=== PATIENT | female | born 1945 | race African-American/Black ===

== ENCOUNTER 2017-08-23 22:07 | Observation (INO) | payer OTHER, BC ==
[~2017-08-23] VITALS: Ht 154.9 cm; Wt 83.0 kg
[2017-08-23 22:59] LABS: MCH 28.5 PG (29.0-34.0); MCHC 32.3 G/DL (30.0-36.0); MCV 88.2 FL (83-99); PLATELET COUNT 206 K/uL (156-360); RBC DIS.WIDTH-CV 13.4 % (11.8-14.6); RBC DIS.WIDTH-SD 43.5 % (39-53); RED BLOOD COUNT 4.42 M/uL (3.80-5.20)
[2017-08-23 23:07] LABS: INTER. NORMALIZED RATIO 1.1; PROTHROMBIN TIME 12.4 SEC (10.2-12.9)
[2017-08-23 23:10] LABS: PTT 27.4 SEC (25-37)
[2017-08-23 23:13] LABS: CHLORIDE 108 mEq/L (99-109); SODIUM 140 mEq/L (136-147)
[2017-08-23 23:14] LABS: GLUCOSE 97 mg/dL (70-99)
[2017-08-23 23:16] LABS: ANION GAP 8 MEQ/L (2-14)
[2017-08-23 23:19] LABS: GFR ESTIMATE (CALCULATED) 58 mL/min/; UREA NITROGEN (BUN) 14 mg/dL (9-23)
[2017-08-23 23:22] LABS: TROP-I INTERPRETATION NEGATIVE; TROPONIN-I < 0.01 ng/mL (0.0-0.30)
[2017-08-24] MEDS ORDERED: RAYOS2 MG PO (01:48)
[2017-08-24] MEDS ORDERED: CRESTOR40 MG PO (01:48)
[2017-08-24] MEDS ORDERED: TRIDERM28.4 GM TP (01:50)
[2017-08-24] MEDS ORDERED: SYMBICORT60 INHALAT IH (01:50)
[2017-08-24] MEDS ORDERED: CYANOCOBALAM1000 MCG PO ×2 (01:51→01:57)
[2017-08-24] MEDS ORDERED: VITAMIN D31000 UNIT PO (01:52)
[2017-08-24] MEDS ORDERED: MULTAQ400 MG PO (01:52)
[2017-08-24] MEDS ORDERED: ELIQUIS5 MG PO (01:53)
[2017-08-24] MEDS ORDERED: NORVASC5 MG PO (01:54)
[2017-08-24] MEDS ORDERED: LO-DOSE ASPIRIN81 M2 PO (01:54)
[2017-08-24] MEDS ORDERED: CALCIUM CITRAT1 EA16 PO (01:56)
[2017-08-24] MEDS ORDERED: PROZAC20 MG PO (01:57)
[2017-08-24] MEDS ORDERED: FOLIC ACID1 MG PO (01:58)
[2017-08-24] MEDS ORDERED: LASIX20 MG PO (01:59)
[2017-08-24] MEDS ORDERED: MECLIZINE HCL25 MG PO (02:00)
[2017-08-24] MEDS ORDERED: LOPRESSOR25 MG PO (02:01)
[2017-08-24] MEDS ORDERED: CELLCEPT500 MG PO (02:01)
[2017-08-24] MEDS ORDERED: NITROSTAT0.4 MG SL (02:02)
[2017-08-24] MEDS ORDERED: MILK OF MAGN PO (02:03)
[2017-08-24] MEDS ORDERED: PRILOSEC20 MG PO (02:03)
[2017-08-24 04:10] VITALS: BP 125/79
[2017-08-24 06:26] LABS: TROP-I INTERPRETATION NEGATIVE; TROPONIN-I < 0.01 ng/mL (0.0-0.30)
[2017-08-24 07:22] LABS: HDL CHOLESTEROL 62 MG/DL (Desirable>=50); LDL CHOLESTEROL 240 mg/dL (Desirable<100); NON-HDL CHOLESTEROL 258 mg/dL (Desirable<160); TOTAL CHOLESTEROL 320 mg/dL (Desirable<200); TRIGLYCERIDES 89 MG/DL (Normal: <150)
[2017-08-24 07:58] VITALS: BP 150/78
[2017-08-24 12:52] LABS: TROP-I INTERPRETATION NEGATIVE; TROPONIN-I < 0.01 ng/mL (0.0-0.30)
[2017-08-24 12:55] VITALS: BP 140/67
[2017-08-24 17:59] VITALS: BP 147/69
[2017-08-24 19:21] VITALS: BP 120/70
[2017-08-24 23:07] VITALS: BP 117/59
[2017-08-25 03:03] VITALS: BP 134/68
[2017-08-25 05:38] LABS: EOSINOPHIL (%) 0 % (0-5); IMMATURE GRANULOCYTE (%) 0.5 % (0.0-0.7); INSTRUMENT ABS NEUTROPHIL CT 6.9 K/uL; LYMPHOCYTE COUNT 0.8 K/uL (1.0-2.8); MCH 28.1 PG (29.0-34.0); MCHC 32.5 G/DL (30.0-36.0); MCV 86.3 FL (83-99); MEAN PLAT.VOLUME 10.3 uM^3 (9.5-12.4); MONOCYTE COUNT 0.3 K/uL (0-0.8); NEUTROPHIL (%) 85.6 % (45-76); NEUTROPHIL COUNT 6.9 K/uL (1.8-6.4); PLATELET COUNT 226 K/uL (156-360); RBC DIS.WIDTH-CV 13.2 % (11.8-14.6); RBC DIS.WIDTH-SD 41.5 % (39-53); RED BLOOD COUNT 4.17 M/uL (3.80-5.20)
[2017-08-25 06:04] LABS: ANION GAP 10 MEQ/L (2-14); CHLORIDE 104 MEQ/L (99-109); GFR ESTIMATE (CALCULATED) > 59 mL/min/; GLUCOSE 125 mg/dL (70-99); POTASSIUM 4.4 MEQ/L (3.7-5.4); SAMPLE HEMOLYSIS CHECK 0; SAMPLE ICTERIC CHECK 0; SAMPLE LIPEMIA CHECK 0; SODIUM 138 MEQ/L (136-147); UREA NITROGEN (BUN) 22 mg/dL (9-23)
[2017-08-25 07:30] VITALS: BP 135/75
[2017-08-25 12:36] VITALS: BP 108/69
[2017-08-25] MEDS ORDERED: AMOX TR-K CLV1 EAC4 PO (13:44)
[2017-08-25] MEDS ORDERED: PRILOSEC20 MG PO (15:00)
[2017-08-25] MEDS ORDERED: ELIQUIS5 MG PO (15:00)
[2017-08-25] MEDS ORDERED: PROZAC20 MG PO (15:00)
== END 2017-08-25 16:30 | disposition home or self-care (01) ==
LOC: EDBD 22:07 → EME 22:07 → 5WEST 08-24 00:42 → EDOF 08-24 00:42 → ENRESERV 08-24 00:44 → 5WEST 08-24 03:53 → CANRESERV 08-24 10:26 → ENRESERV 08-24 10:26 → 5WEST 08-25 16:30
PROVIDERS: Emergency Medicine; Internal Medicine; Physician Assistant
DX: R07.9 Chest pain, unspecified (principal); J18.1 Lobar pneumonia, unspecified organism; J45.21 Mild intermittent asthma with (acute) exacerbation; I48.0 Paroxysmal atrial fibrillation; I11.0 Hypertensive heart disease with heart failure; I50.9 Heart failure, unspecified; E78.5 Hyperlipidemia, unspecified; I25.10 Atherosclerotic heart disease of native coronary artery without angina pectoris; Z95.1 Presence of aortocoronary bypass graft; Z95.5 Presence of coronary angioplasty implant and graft; M32.9 Systemic lupus erythematosus, unspecified; Z98.1 Arthrodesis status; R42 Dizziness and giddiness; M19.90 Unspecified osteoarthritis, unspecified site; Z82.49 Family history of ischemic heart disease and other diseases of the circulatory system; Z79.52 Long term (current) use of systemic steroids; Z79.01 Long term (current) use of anticoagulants; Z79.82 Long term (current) use of aspirin; Z91.041 Radiographic dye allergy status; Z88.6 Allergy status to analgesic agent; Z88.2 Allergy status to sulfonamides
CPT/HCPCS: 71020; 78582; 80048; 80061; 84484; 85025; 85027; 85379; 85610; 85730; 87040; 87077; 87186; 87801; 90686; 93005; 94640; 94640 76; 99202; 99281; 99285; A9540; A9567; G0378; J0696; J2920; J3370; J7050; J7512; J7517